=== PATIENT | male | born 1960 | race Caucasian/White ===

== ENCOUNTER 2023-12-23 23:23 | Emergency (ER) | payer SELFPAY ==
[~2023-12-23] VITALS: Ht 172.7 cm; Wt 72.6 kg
[2023-12-23 23:28] VITALS: BP 156/79; PULSE 105; RESP 16; TEMP 97.5; O2SAT 98
[2023-12-23 23:40] VITALS: BP 156/79; PULSE 105; RESP 16; TEMP 97.5; O2SAT 98
== END 2023-12-23 23:57 ==
LOC: MED 23:23
DX: Z02.89 Encounter for other administrative examinations (principal); Z79.899 Other long term (current) drug therapy
CPT/HCPCS: 99283